=== PATIENT | female | born 1985 | race Asian ===

== ENCOUNTER 2022-10-05 14:21 | Outpatient (CLI) | payer OTHER | END 2022-10-05 14:22 | disposition home or self-care (01) | LOC: CSHRAD 14:21 | PROVIDERS: ATTEND Family Medicine | DX: M25.562 Pain in left knee (principal); R07.9 Chest pain, unspecified; M79.672 Pain in left foot; M77.32 Calcaneal spur, left foot | CPT/HCPCS: 71046 ==